=== PATIENT | female | born 1985 | race African-American/Black ===

== ENCOUNTER 2018-02-10 07:34 | Emergency (ER) | payer OTHER ==
[~2018-02-10] VITALS: Ht 160 cm; Wt 99.8 kg
[~2018-02-10 07:34] MED LIST: ACETAMINOPHEN-1 EAC1 PO; BACTRIM DS TAB1 EACH; BACTRIM DS TAB1 EACH PO; CHLORTHALIDONE25 MG PO; DOXYCYCLINE 10100 M2 PO; DOXYCYCLINE 10100 MG PO; HYDROCHLOROTHIA25 M1; KEFLEX500 MG PO; LIORESAL 10 MG10 MG PO; LORTAB 5 MG/5001 TA1 PO; NORCO 5-325 TA1 EACH PO; OSELB75 PO; PROVERA10 MG PO; VALIUM10 MG PO; ZPAK PO
[2018-02-10] MEDS ORDERED: NAPROSYN500 MG PO (08:07)
[2018-02-10] MEDS ORDERED: CHLORTHALIDONE25 MG PO (08:27)
[2018-02-10] MEDS ORDERED: DOXYCYCLINE HY100 M3 PO (08:27)
[2018-02-10] MEDS ORDERED: CLINDAMYCIN PHO30 GM TOP (08:28)
[2018-02-10] MEDS ORDERED: BETAMETHASONE D15 G6 TOP (08:28)
== END 2018-02-10 08:30 | disposition home or self-care (01) ==
LOC: ER 07:34
DX: S39.012A Strain of muscle, fascia and tendon of lower back, initial encounter (principal); S29.012A Strain of muscle and tendon of back wall of thorax, initial encounter; G80.9 Cerebral palsy, unspecified; V89.0XXA Person injured in unspecified motor-vehicle accident, nontraffic, initial encounter; Y93.89 Activity, other specified; Y92.89 Other specified places as the place of occurrence of the external cause; Y99.8 Other external cause status